=== PATIENT | male | born 1940 | race Caucasian/White ===

== ENCOUNTER 2024-06-15 14:56 | Emergency (ER) | payer MEDICARE ==
[~2024-06-15] VITALS: Ht 175.3 cm; Wt 77.1 kg
[~2024-06-15 14:56] MED LIST: ASPI-556 PO; BACL15TA PO; CLOP75TA32 PO; CYCL-309 PO; DOCU-116 PO; FURO20TA4 PO; GABA-1405 PO; HYDR-4068 PO; LIDOP TP; METO25TA6 PO; PANT40TA54 PO; POLY17PO4 PO; PRAM0.5T12 PO; RELU120T PO; ROPI0.2535 PO; TAMS0.4C32 PO; TRAZ-185 PO; VENL-83 PO
[2024-06-15 15:11] VITALS: BP 117/86; PULSE 81; RESP 20; TEMP 98.7
[2024-06-15] MEDS ORDERED: CLIN-141 PO (17:26)
[2024-06-15] MEDS: cefTRIAXone 1G VIAL IM ONE (17:33)
== END 2024-06-15 17:38 | disposition home or self-care (01) ==
LOC: EDH 14:56
DX: S02.32XA Fracture of orbital floor, left side, initial encounter for closed fracture (principal); M25.512 Pain in left shoulder; R07.81 Pleurodynia; M25.561 Pain in right knee; M25.562 Pain in left knee; Z88.0 Allergy status to penicillin; Z79.899 Other long term (current) drug therapy; Z79.82 Long term (current) use of aspirin; Z79.02 Long term (current) use of antithrombotics/antiplatelets; W18.39XA Other fall on same level, initial encounter; Y93.89 Activity, other specified; Y92.89 Other specified places as the place of occurrence of the external cause; Y99.8 Other external cause status
CPT/HCPCS: 99285; 70450; 72125; 71250; 70486; 74176; 96372; J0696